=== PATIENT | male | born 1980 | race Caucasian/White ===

== ENCOUNTER 2016-08-16 12:29 | Emergency (ER) | payer OTHER ==
--- NOTE | ~2016-08-16 | EKG ---
PATIENT: MU BROWN UNIT #: [id number] Ventricular Rate: 78 BPM Atrial Rate: 78 BPM P-R Interval: 120 ms QRS Duration: 90 ms Q-T Interval: 386 ms QTC Calculation(Bezet): 440 ms P Sweet: 45 degrees Calculated R Sweet: 38 degrees Calculated T Sweet: 38 degrees Diagnosis Line: Normal sinus rhythm Diagnosis Line: Normal ECG Diagnosis Line: No previous ECGs available Diagnosis Line: Confirmed by GUILLERMO VELEZ MD ([id number]) on Diagnosis Line: 08/20/2016 8:35:47 AM INTERPRETING MD: AGUSTIN MOORE
--- NOTE | ~2016-08-16 | CR72 ---
[facility] A Service of [facility] & [facility] RADIOLOGY TEXT RESULTS PATIENT: MU BROWN LOCATION: SED : 76 UNIT #: [id number] AGE: [address]: Salvatore Dover MD SEX: M ORDER DR: [id number] [place] [id number] MR#: [id number] Acc #: [id number] NAME: MU BROWN : 1980 SEX: M STUDY DATE/TIME: 08/16/2016 12:51 UNIT: SED ROOM: STUDY DESCRIPTION: CR Chest Single View Portable Attending Physician: Salvatore Dover M.D. Ordering Physician: Salvatore Dover M.D. Primary Care Physician: No Primary Care Physician MEDICAL IMAGING REPORT This report is preliminary unless electronic signature is present. EXAM Portable chest INDICATIONS Chest pain for 2 days. COMPARISON STUDIES No comparisons. FINDINGS Calcified granuloma in the right base. No acute infiltrate. Heart size normal. IMPRESSION No active disease. Dictated by... Eros Redd M.D. THIS IS AN ELECTRONICALLY VERIFIED REPORT Eros Redd M.D. at 08/19/2016 7:33 AM Mikal TD: 08/16/2016 16:24 JOB #: [id number] MEDICAL IMAGING REPORT Page 1 of 1
[~2016-08-16 12:29] MED LIST: CARAFATE1 G PO; CLARITIN10 M1 PO; DICLOFENAC PO; FLEXERIL PO; FLEXERIL10 MG PO; IBUPROFEN800 MG PO; INDOMETHACIN50 MG PO; KETOPROFEN PO; LISINOPRIL-HCTZ1 T15 PO; LORTAB 5/500 TA1 TA2 PO; NAPROXEN PO; NORVASC PO; PEPCID AC20 M2 PO; PRILOSEC20 MG PO; PROTONIX PO; SKELAXIN PO; TYLOX1 CAP 5/50 PO
[2016-08-16 12:57] LABS: BASOPHIL# 0.1 X10e3 (0-0.3); BASOPHIL% 0.9 % (0-2.5); EOSINOPHIL# 0.4 X10e3 (0-0.7); EOSINOPHIL% 4.5 % (0.0-7.0); HEMATOCRIT 45.4 % (38.0-50.0); HEMOGLOBIN 15.8 gm/dL (13.0-16.0); LYMPHOCYTE% 26.3 % (17.0-45.0); MEAN CELL VOLUME 83.7 FL (83-96); MEAN CORPUSCULAR HEMOGLOBIN 29.2 PG (28-34); MEAN CORPUSCULAR HGB CONC 34.9 g/dL (30-36); MEAN PLATELET VOLUME 7.4 FL (6.5-11.5); MONOCYTE# 0.6 X10e3 (0-1.0); MONOCYTE% 7.6 % (3.0-12.0); NEUTROPHIL# 4.7 X10e3 (1.5-7.1); NEUTROPHIL% 60.7 % (40-75); PLATELET COUNT 297 X10e3 (140-420); RED BLOOD COUNT 5.43 X10e (3.90-5.60); RED CELL DISTRIBUTION WIDTH 12.7 % (11.0-15.5); WHITE BLOOD COUNT 7.7 X10e3 (4.0-10.5)
[2016-08-16 13:05] LABS: DIFF IND NO
[2016-08-16 13:16] LABS: POC - CKMB <1.0 ng/mL (0.0-7.9)
[2016-08-16 13:17] LABS: POC - TROPONIN <0.05 ng/mL (<=0.05)
[2016-08-16 13:18] LABS: ALBUMIN SERUM 4.7 g/dL (3.5-5.0); BILIRUBIN,TOTAL 0.6 mg/dL (0.2-2.0); BUN/CREATININE RATIO 12.3; CALCIUM SERUM 9.2 mg/dL (8.4-10.2); CREATININE SERUM 1.3 mg/dL (0.6-1.4); GLOM FILT RATE Estimated 69.2 mL/min (>60); POTASSIUM 4.1 mmol/L (3.5-5.1); PROTEIN TOTAL SERUM 7.8 g/dL (6.0-8.3)
== END 2016-08-16 14:07 | disposition home or self-care (01) ==
LOC: SED 12:29
PROVIDERS: Emergency Medicine
DX: R07.89 Other chest pain (principal); F17.200 Nicotine dependence, unspecified, uncomplicated
CPT/HCPCS: 36415; 71010; 80053; 82553; 84484; 85025; 93005; 96374; 96375; 99285; J1885; J2405